=== PATIENT | male | born 1955 | race Caucasian/White ===

== ENCOUNTER 2016-12-19 22:28 | Emergency (ER) | payer BC ==
[~2016-12-19] VITALS: Ht 193 cm; Wt 143.5 kg
[~2016-12-19 22:28] MED LIST: ATEN-51 PO; BUDE6HFA IH; CELE200C PO; CETI-240 PO; COU5 PO; CYCL-319 PO; DOCU100C PO; DULO60CA6 PO; FOLI-49 PO; GUAI400T22 PO; HYDR200T5 PO; LANR60SY SQ; LIPA1CAP45 PO; LOSA100T7 PO; MET25 PO; MONT10TA21 PO; OCTR100V2 SC; OMEP20CA16 PO; OXYC20TA41 PO; WARF6TAB35 PO; [UNRECOGNIZED DRUG - CODE] IM
[2016-12-19 22:56] VITALS: Ht 193 cm; Wt 143.5 kg
[2016-12-19] MEDS ORDERED: SODIUM CHLORIDE 0.9% 1L BAG IV* STA (23:25)
[2016-12-20 00:01] LABS: ADD SCAN DIFF NO
[2016-12-20 00:03] LABS: BASOPHILS % 0.4 % (0.0-2.0); EOSINOPHILS # 0.1 10^3/ul (0.0-0.5); EOSINOPHILS % 1.3 % (0.0-7.0); HEMOGLOBIN 10.4 g/dl (14.0-18.0); LYMPHOCYTES # 1.2 10^3/ul (0.8-2.9); LYMPHOCYTES % 10.6 % (15.0-51.0); MEAN CORPUSCULAR HEMOGLOBIN 31.5 pg (29.0-33.0); MEAN CORPUSCULAR HGB CONC 34.7 g/dl (32.0-37.0); MEAN CORPUSCULAR VOLUME 90.9 fl (82.0-101.0); MEAN PLATELET VOLUME 9.3 fl (7.4-10.4); MONOCYTE # 1.2 10^3/ul (0.3-0.9); MONOCYTES % 11.4 % (0.0-11.0); NEUTROPHIL # 8.2 10^3/ul (1.6-7.5); NEUTROPHILS % 75.9 % (39.0-77.0); PLATELET COUNT 244 10^3/UL (140-415); RED CELL DISTRIBUTION WIDTH 12.9 % (11.5-14.5); WHITE BLOOD COUNT 10.8 10^3/ul (4.8-10.8)
[2016-12-20 00:12] LABS: ADD UMIC NO; URINE BILIRUBIN (Dip) NEGATIVE (NEGATIVE); URINE BLOOD (Dip) NEGATIVE (NEGATIVE); URINE COLOR LT. YELLOW (YELLOW); URINE GLUCOSE (Dip) NEGATIVE (NEGATIVE); URINE KETONES (Dip) NEGATIVE (NEGATIVE); URINE LEUKOCYTE ESTERASE (Dip) NEGATIVE (NEGATIVE); URINE NITRITE (Dip) NEGATIVE (NEGATIVE); URINE TOTAL PROTEIN (Dip) NEGATIVE (NEGATIVE); URINE UROBILINOGEN (Dip) 0.2 E.U./dL (0.1-1.0)
[2016-12-20 00:18] LABS: INR 2.52; PROTIME 27.5 Sec (12.2-14.2); PT RATIO 2.1
--- NOTE | 2016-12-20 00:25 | RADRPT ---
PROCEDURE: XR Chest. CLINICAL INDICATION: Sepsis. TECHNIQUE: Single frontal chest x-ray. COMPARISON: 04/21/2015 FINDINGS: Heart is top normal size.. Pulmonary vessels are top normal caliber without definite CHF.. No focal infiltrate is seen. There is no pleural effusion. There is no pneumothorax. The osseous structur es are unremarkable. IMPRESSION: Heart and pulmonary vessels top normal caliber. No definite CHF or infiltrate. RPTAT: [facility] .Ruperto Nichols MD, MD Date Time Electronically viewed and signed by .Ruperto Nichols MD, on 12/20/2016 00:25 .K/
[2016-12-20 00:26] LABS: ALANINE AMINOTRANSFERASE 36 IU/L (13-69); ALBUMIN 3.9 g/dl (3.3-4.9); ALBUMIN/GLOBULIN RATIO 1.11; ALKALINE PHOSPHATASE 68 IU/L (42-121); ANION GAP 12 (8-16); ASPARTATE AMINO TRANSFERASE 26 IU/L (15-46); BILIRUBIN,INDIRECT 0.6 mg/dl (0-1.1); BILIRUBIN,TOTAL 0.6 mg/dl (0.2-1.3); BLOOD UREA NITROGEN 21 mg/dl (7-20); CALCIUM 8.6 mg/dl (8.4-10.2); CARBON DIOXIDE 26 mmol/L (21-31); CHLORIDE 100 mmol/L (97-110); CREATININE 0.86 mg/dl (0.61-1.24); GLUCOSE 121 mg/dl (70-220); POTASSIUM 3.7 mmol/L (3.5-5.1); SODIUM 134 mmol/L (135-144); TOTAL PROTEIN 7.4 g/dl (6.1-8.1)
[2016-12-20] MEDS ORDERED: HYDR-3652 PO (00:32)
[2016-12-20] MEDS ORDERED: LIPA1CAP45 PO (00:34)
[2016-12-20] MEDS ORDERED: CHOL500016 PO (00:40)
[2016-12-20] MEDS ORDERED: HYDR200T5 PO (00:44)
[2016-12-20] MEDS ORDERED: ALBU8.5H3 INH (00:45)
[2016-12-20 00:49] LABS: TROPONIN-I < 0.012 ng/ml (0.00-0.12)
[2016-12-20] MEDS ORDERED: LIDO30JE8 MM (00:53)
[2016-12-20] MEDS ORDERED: LIDO30CR TP (00:53)
[2016-12-20] MEDS ORDERED: [UNRECOGNIZED DRUG - OTHER] TOP (00:58)
[2016-12-20] MEDS ORDERED: WARF4TAB52 PO (01:02)
[2016-12-20] MEDS ORDERED: TIZA4CAP PO (01:04)
[2016-12-20] MEDS ORDERED: CETI10CA PO (01:06)
[2016-12-20] MEDS ORDERED: METH5TAB3 PO (01:08)
[2016-12-20] MEDS ORDERED: GUAI120011 PO (01:10)
[2016-12-20] MEDS ORDERED: LEVO50TA74 PO (01:10)
[2016-12-20] MEDS ORDERED: EVER5TAB PO (01:14)
[2016-12-20] MEDS ORDERED: UMEC1DIS INHALATION (01:15)
[2016-12-20] MEDS ORDERED: FLUT16SP17 NASAL (01:17)
[2016-12-20] MEDS ORDERED: MULT-542 PO (01:21)
[2016-12-20] MEDS ORDERED: CALC-84 PO (01:22)
[2016-12-20 02:00] VITALS: BP 130/68; PULSE 61; RESP 14
--- NOTE | 2016-12-20 02:15 | ERD ---
ER Documentation Chief Complaint Date/Time DATE: 12/20/16 TIME: 02:11 Chief Complaint Fever post Chemo. Mesenteric Artery CA. 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 According to the patient's who is giving the majority history this patient is on chemotherapeutic agent Phenetor 5 mg a day. He is followed by an oncologist at [facility], . This patient had a temperature of 100.4F. The patient was given Tylenol was brought to the emergency room for further evaluation. He denies any abdominal pain, chest pain , cough or shortness of breath at this time. ROS All systems reviewed and are negative except as per history of present illness. Medications Home Meds Reported Medications Calcium Carbonate-Vitamin D3 (Calcium 500 + D Tablet) 1 Each Tablet, 2 TAB PO DAILY, TAB 12/20/16 Multivitamin* (Daily Value*) 1 Each Tablet, 1 TAB PO DAILY, TAB 12/20/16 Fluticasone Propionate* (Fluticasone Propionate* Nasal) 50 Mcg/Blanket - 16 Gm Blanket.susp, 1 SPRAY NASAL BID, #1 BOTTLE TO EACH NOSTRIL 12/20/16 Umeclidinium Brm-Vilanterol Tr (Anoro Ellipta) 62.5-25 Mcg Disk.w.dev, 1 EACH INHALATION DAILY, #1 DISK 12/20/16 Everolimus (Afinitor) 5 Mg Tablet, 5 MG PO DAILY, #30 TAB 12/20/16 Levothyroxine Sodium* (Levothyroxine Sodium*) 50 Mcg Tablet, 50 MCG PO BEFORE BREAKFAST, #30 TAB 12/20/16 Guaifenesin (Mucinex) 1,200 Mg Tab.er.12h, 1200 MG PO BID, TAB 12/20/16 Methylphenidate Hcl* (Methylphenidate Hcl*) 5 Mg Tablet, 10 MG PO BID, TAB PATIENT TAKES 2 TABLETS TWICE DAILY, IN THE A.M., THEN NEXT 4 HOURS LATER 12/20/16 Cetirizine Hcl* (Zyrtec*) 10 Mg Capsule, 10 MG PO DAILY, TAB 12/20/16 Tizanidine Hcl* (Zanaflex*) 4 Mg Capsule, 4 MG PO BID Y for PAIN, CAP 12/20/16 Warfarin Sodium* (Warfarin Sodium*) 4 Mg Tablet, 4 MG PO AC DINNER, TAB 12/20/16 [Rectagel Hc ] No Conflict Check, TUB TOP for ITCHING LIDOCAINE HCL 2.8% - HYDROCORTISONE ACETATE 0.55% GEL WITH ALOE NEEDED 12/20/16 Albuterol Sulfate* (Proair HFA*) 8.5 Gm Hfa.aer.ad, 2 PUFF INH Q4, #1 INHALER 2 PUFFS 4 TIMES A DAY 12/20/16 Hydroxychloroquine Sulfate* (Plaquenil*) 200 Mg Tab, 200 MG PO WITH BREAKFAST DINNE, TAB 12/20/16 Cholecalciferol (D3-50) 50,000 Unit Capsule, 08144 UNIT PO, CAP TAKE 1 CAP BY MOUTH EVERY THURSDAY & Thursday12/20/16 Vwymjb-Zixgglgc-Fnyltxy* (Gilda CANCHOLA* 36,000) 36,000 L-114,000-180,000 Unit Capsule.dr, 2 CAP PO WITH MEALS, CAP 12/20/16 Hydrocodone Bit/Homatrop Me-Br ([place] 5-1.5 mg Tablet) 1 Each Tablet, 1 EACH PO Q6H for PAIN, TAB 12/20/16 Oxycodone Hcl* (Oxycontin*) 20 Mg Tab.er.12h, 60 MG PO Q6 Y for PAIN, TAB 04/20/15 Duloxetine Hcl* (Cymbalta*) 60 Mg Capsule.dr, 60 MG PO QHS, CAP 04/20/15 Celecoxib* (Celebrex*) 200 Mg Capsule, 200 MG PO DAILY, CAP 04/20/15 Folic Acid* (Folic Acid*) 1 Mg Tablet, 1 MG PO DAILY, TAB 04/20/15 Montelukast Sodium* (Singulair*) 10 Mg Tablet, 10 MG PO HS, TAB 04/20/15 Octreotide Acetate* (Octreotide Acetate) 100 Mcg/Ml Soln, 300 MCG SC TID NEEDED, AMP 04/20/15 Omeprazole* (Omeprazole*) 20 Mg Capsule.dr, 20 MG PO QAM, CAP 04/20/15 Atenolol* (Atenolol*) 25 Mg Tablet, 25 MG PO QHS, TAB 04/20/15 Losartan Potassium* (Losartan Potassium*) 100 Mg Tablet, 100 MG PO DAILY, TAB 04/20/15 Methotrexate* (Methotrexate*) 2.5 Mg Tab, 20 MG PO ONCE A WEEK, TAB ON Fridays04/20/15 Discontinued Reported Medications Lidocaine (Rectasmoothe) 30 Gm Cream..g., 30 GM TP 12/20/16 Lidocaine Hcl (Lidocaine Hcl) 30 Ml Jel, 30 ML MM 12/20/16 Njoqof-Efgtpdzn-Jfqepzy* (Gilda DR* 36,000) 36,000 L-114,000-180,000 Unit Capsule.dr, 1 CAP PO WITH MEALS, CAP 04/20/15 Cyclobenzaprine Hcl* (Cyclobenzaprine Hcl*) 10 Mg Tablet, 10 MG PO TID Y for MUSCLE SPASMS, TAB 04/20/15 Docusate Sodium* (Stool Softener*) 100 Mg Capsule, 100 MG PO BID, CAP 04/20/15 Cetirizine Hcl* (Cetirizine Hcl*) 10 Mg Tablet, 10 MG PO DAILY, TAB 04/20/15 Testosterone Cypionate* (Testosterone Cypionate*) 200 Mg/Ml Vial, 100 MG IM Q14D , VIAL 04/20/15 Lanreotide Acetate (Somatuline Depot) 60 Mg/0.2 Ml Disp.syrin, SQ Q28D, SYR 04/20/15 Warfarin Sod (Coumadin) 5 Mg Tablet, 5 MG PO THU-THU, TAB 04/20/15 Warfarin Sodium* (Warfarin Sodium*) 6 Mg Tablet, 6 MG PO THU-, TAB 04/20/15 Guaifenesin* (Refenesen*) 400 Mg Tablet, 800 MG PO BID Y for COUGH, TAB 04/20/15 Budesonide-Formoterol Fumarate* (Symbicort*) 160-4.5 Hfa.aer.ad, 2 PUFF IH BID, INH 04/20/15 Hydroxychloroquine Sulfate* (Plaquenil*) 200 Mg Tab, 200 MG PO BID, TAB 04/20/15 Allergies Allergies: Coded Allergies: epinephrine (Verified Allergy, Unknown, 12/20/16) Uncoded Allergies: WHOLE BLOOD PLASMA (Allergy, Unknown, 11/15/15) PMhx/Soc History of Surgery: Yes (gallbladder removed,back sx,hernia ,abdominal sx) Anesthesia Reaction: Yes Hx Neurological Disorder: No Hx Respiratory Disorders: Yes (use cpap at home,asthma.pe) Hx Cardiac Disorders: Yes (htn) Hx Psychiatric Problems: No Hx Miscellaneous Medical Probl: Yes (blood clot to dago lower ext , with filter, carcinoid tumor ) Hx Alcohol Use: No Hx Substance Use: No Hx Tobacco Use: No Smoking Status: Never smoker Physical Exam Vitals Vital Signs Date Time Temp Pulse Resp B/P Pulse Ox O2 Delivery O2 Flow Rate FiO2 12/19/16 23:22 73 16 125/75 96 Room Air 12/19/16 22:56 99.5 84 22 133/73 93 Physical Exam Const: No acute distress Head: Atraumatic Eyes: Normal Conjunctiva ENT: Dry mucous membranes, normal External Ears, Nose and Mouth. Neck: Full range of motion..~ No meningismus. Resp: Clear to auscultation bilaterally Cardio: Regular rate and rhythm, no murmurs Abd: Soft, non tender, non distended. Normal bowel sounds Skin: No petechiae or rashes Back: No midline or flank tenderness Ext: No cyanosis, or edema Neur: Awake and alert Psych: Normal Mood and Affect Result Diagram: 12/19/16 2345 12/19/16 2345 Results 24 hrs Laboratory Tests Test 12/19/16 23:45 White Blood Count 10.810^3/ul Red Blood Count 3.3010^6/ul Hemoglobin 10.4g/dl Hematocrit 30.0% Mean Corpuscular Volume 90.9fl Mean Corpuscular Hemoglobin 31.5pg Mean Corpuscular Hemoglobin Concent 34.7g/dl Red Cell Distribution Width 12.9% Platelet Count 87931^3/UL Mean Platelet Volume 9.3fl Neutrophils % 75.9% Lymphocytes % 10.6% Monocytes % 11.4% Eosinophils % 1.3% Basophils % 0.4% Nucleated Red Blood Cells % 0.0/100WBC Neutrophils # 8.210^3/ul Lymphocytes # 1.210^3/ul Monocytes # 1.210^3/ul Eosinophils # 0.110^3/ul Basophils # 0.010^3/ul Nucleated Red Blood Cells # 0.010^3/ul Prothrombin Time 27.5Sec Prothrombin Time Ratio 2.1 INR International Normalized Ratio 2.52 Activated Partial Thromboplast Time 61.0Sec Urine Color LT. YELLOW Urine Clarity CLEAR Urine pH 5.5 Urine Specific [place] 1.010 Urine Ketones NEGATIVE Urine Nitrite NEGATIVE Urine Bilirubin NEGATIVE Urine Urobilinogen 0.2 E.U./dL Urine Leukocyte Esterase NEGATIVE Urine Hemoglobin NEGATIVE Urine Glucose NEGATIVE% Urine Total Protein NEGATIVE Sodium Level 134mmol/L Potassium Level 3.7mmol/L Chloride Level 100mmol/L Carbon Dioxide Level 26mmol/L Anion Gap 12 Blood Urea Nitrogen 21mg/dl Creatinine 0.86mg/dl Glucose Level 121mg/dl Lactic Acid Level 1.0mmol/L Calcium Level 8.6mg/dl Total Bilirubin 0.6mg/dl Direct Bilirubin 0.00mg/dl Indirect Bilirubin 0.6mg/dl Aspartate Amino Transf (AST/SGOT) 26IU/L Alanine Aminotransferase (ALT/SGPT) 36IU/L Alkaline Phosphatase 68IU/L Troponin I < 0.012ng/ml Total Protein 7.4g/dl Albumin 3.9g/dl Globulin 3.50g/dl Albumin/Globulin Ratio 1.11 Current Medications Medications (Trade) Dose Ordered Sig/Jesus Route PRN Reason Start Time Stop Time Status Last Admin Dose Admin Sodium Chloride (NS) 2,500 ml BOLUS OVER 2 HOURS STAT IV* 12/19/16 23:25 12/19/16 23:27 DC 12/19/16 23:44 Procedures/MDM EKG: Rate/Rhythm: [Normal Sinus Rhythm] QRS, ST, T-waves: [No changes consistent w/ acute ischemia] Impression: [No evidence of ischemia or arrhythmia] Chest X-ray 1V Interpreted by me: Soft Tissue: No acute abnormalities Bones: No acute abnormalities Mediastinum/Cardiac Silhouette/Lungs: Chest X-ray 1V Interpreted by me: This 61-year-old male presents to the emergency room for evaluation of a fever. This patient does have carcinoid tumor and is on chemotherapy with last dose of chemotherapy yesterday. I did obtain a septic workup on this patient. Lab work is within normal limits except for mild anemia. He was afebrile my examination, not tachycardic, and hemodynamically stable. EKG is also nonischemic. Chest x-ray is clear. This patient is in no acute distress at this time. He was given approximately 2 L of fluid in the emergency room. I have contacted the on-call physician for his oncologist and have spoken to Dr. Cooper and have reviewed the patient's lab work with him. He agrees the patient can be discharged home at this time with instructions to follow-up with him in the office. I have relayed this to the patient and the patient's who are okay with her plan of care. I advised him to return immediately to the emergency room if this fever returns or if the patient has any type of discomfort and they verbalized understanding. Departure Diagnosis: Primary Impression: Fever Additional Impressions: Carcinoid tumor Normocytic anemia Condition: Stable KERON TIJERINA DO December 20, 2016 02:15
== END 2016-12-20 02:43 | disposition home or self-care (01) ==
LOC: E/R 22:28
DX: R50.9 Fever, unspecified (principal); C48.1 Malignant neoplasm of specified parts of peritoneum; D64.9 Anemia, unspecified; I10 Essential (primary) hypertension; J45.909 Unspecified asthma, uncomplicated; R40.2142 Coma scale, eyes open, spontaneous, at arrival to emergency department; R40.2252 Coma scale, best verbal response, oriented, at arrival to emergency department; R40.2362 Coma scale, best motor response, obeys commands, at arrival to emergency department; Z79.01 Long term (current) use of anticoagulants
CPT/HCPCS: 36415; 71010; 80053; 81003; 83605; 84484; 85025; 85610; 85730; 87040; 87086; 87400; 99285; J7030; 93005

== ENCOUNTER 2018-05-12 13:27 | Inpatient (IN) | END 2018-05-19 11:44 | disposition home or self-care (01) | DRG 300 ==

== ENCOUNTER → 2018-09-13 | Outpatient (CLI) | payer BC ==
[~2018-09-13] MED LIST changes: +ALBU8.5H8 INH; +AMLO-145 PO; +APIX5TAB PO; -ATEN-51 PO; +BEN25 PO; +BENZ-6 PO; -BUDE6HFA IH; -CETI-240 PO; +CETI10TA34 PO; -COU5 PO; -CYCL-319 PO; +DOCU-144 PO; -DOCU100C PO; -DULO60CA6 PO; +ERGO500013 PO; +FLUT1BLS3 IH; +GUAI120011 PO; -GUAI400T22 PO; -HYDR200T5 PO; +IPRA3AMP29 INHALATION; +LEVO50TA7 PO; +LOSA100T15 PO; -LOSA100T7 PO; +LYRI100 PO; -MET25 PO; +METO10TA3 PO; +MULT-542 PO; -OMEP20CA16 PO; -OXYC20TA41 PO; +OXYC5CAP17 PO; +PREG150C PO; +ROFL500T6 PO; +TIZA4CAP PO; -WARF6TAB35 PO; +ZOLP10TA5 PO; -[UNRECOGNIZED DRUG - CODE] IM; +[UNRECOGNIZED DRUG - CODE] SQ; +[UNRECOGNIZED DRUG - OTHER] TOP
== END | disposition home or self-care (01) ==
LOC: LAB 11:52
PROVIDERS: ATTEND Internal Medicine Critical Care Medicine
DX: J20.9 Acute bronchitis, unspecified (principal); E34.0 Carcinoid syndrome
CPT/HCPCS: 87070